=== PATIENT | female | born 1990 | race Two or more races ===

== ENCOUNTER 2025-01-29 10:25 | Inpatient (IN) | payer OTHER, SELFPAY ==
[2025-01-29 11:26] VITALS: BP 115/68; BMI 30.9
[2025-01-29 11:29] LABS: Hematocrit 41.1 % (37.0-47.0); Hemoglobin 13.8 g/dL (12.0-16.0); Mean Corp Hgb Conc. 33.6 g/dL (33.0-37.0); Mean Corpuscular Volume 93.2 fL (81.0-99.0); Nucleated Red Blood Cells % 0 %; Platelet Count 165 10^3/uL (130-400); Red Cell Dist. Width 14.3 % (11.5-14.5)
[2025-01-29] MEDS: PITOCIN 30 UNITS/NSS 500 ML IV (18:41)
[2025-01-29] MEDS: LR 1000 IV ×2 (18:41→20:26)
[2025-01-30] MEDS: MOTRIN 600 MG PO ×3 (03:18→23:29)
[2025-01-30 05:43] LABS: Hematocrit 38.2 % (37.0-47.0); Hemoglobin 12.4 g/dL (12.0-16.0)
[2025-01-30] MEDS: PRENATAL PLUS 1 TABLET PO (09:31)
[2025-01-30] MEDS: COLACE 100 MG PO ×2 (09:31→20:33)
[2025-01-30] MEDS: TYLENOL 650 MG PO (23:29)
[2025-01-31] MEDS: COLACE 100 MG PO (10:52)
[2025-01-31] MEDS: PRENATAL PLUS 1 TABLET PO (10:52)
== END 2025-01-31 13:40 | disposition home or self-care (01) | DRG 807 ==
LOC: LDRP 10:25
PROVIDERS: ADMITTING PHYSICIAN Obstetrics & Gynecology; FAMILY PHYSICIAN Nurse Practitioner
PROC: 10E0XZZ Delivery of Products of Conception, External Approach (ICD-10-PCS; 2025-01-29)
DX: O42.02 Full-term premature rupture of membranes, onset of labor within 24 hours of rupture (principal); Z37.0 Single live birth; Z3A.39 39 weeks gestation of pregnancy; O99.284 Endocrine, nutritional and metabolic diseases complicating childbirth; E03.9 Hypothyroidism, unspecified; O77.0 Labor and delivery complicated by meconium in amniotic fluid; O69.81X0 Labor and delivery complicated by cord around neck, without compression, not applicable or unspecified; Z60.3 Acculturation difficulty
CPT/HCPCS: 85014; 85018; 85025; 86780; 86850; 86900; 86901; 88307